=== PATIENT | female | born 1955 | race Caucasian/White ===

== ENCOUNTER 2016-06-24 09:59 | Emergency (ER) | payer OTHER ==
[2016-06-24] MEDS ORDERED: KETOROLAC TROMETHAMINE 30 MG/ML VIAL IM ONE (10:13)
[2016-06-24] MEDS ORDERED: KETOROLAC TROMETHAMINE 30 MG/ML VIAL ONE (10:18)
--- NOTE | 2016-06-24 10:20 | ERNOTE ---
Upper Extremity HPI - Narrative Date of Service: 06/24/16 - General Extremities Pain Location: wrist: left, hand: left Time Seen by Provider: 06/24/16 10:09 Source: patient, RN notes reviewed Exam Limitations: clinical condition - Immun/Allergies/Home Medications Immunizations: IMMUNIZATION HX Immunizations Up to Date Yes History of Influenza Vaccine Yes Hx Pneumococcal Vaccination No Allergies/Adverse Reactions: Allergies Allergy/AdvReac Type Severity Reaction Status Date / Time No Known Allergies Allergy Verified 06/24/16 10:09 Home Medications: HOME MEDICATIONS Acetaminophen with Codeine [Tylenol with Codeine #3 Tablet] 1 each PO Q6H PRN # 24 tab 06/24/16 [Last Taken Unknown] - Pain Score Pain Score #1 Pain Score: 3 - left wrist - History of Present Illness Narrative: 60 year old female who presents to er with c/o left wrist pain. tripped on [employer] last night, fell and landed on left wrist. no numbness / tingling left hand. has not taken anything for pain since fall. Occurred: yesterday Location of Incident: home Severity: moderate Method of Injury: Reports: fell Reason for Fall: Reports: slipped, tripped Loss of Consciousness: Reports: no loss of consciousness Modifying Factors - (Improves): Reports: immobilization Modifying Factors - (Worsens): Reports: movement Associated Symptoms: Denies: tingling Other Injuries: Reports: none Review of Systems - Review of Systems Constitutional: Present: no symptoms reported EYE: Present: no symptoms reported ENT: Present: no symptoms reported Respiratory: Present: no symptoms reported Cardiology: Present: no symptoms reported Gastrointestinal/Abdominal: Present: no symptoms reported Genitourinary: Present: no symptoms reported Musculoskeletal: Present: joint pain, joint swelling Skin: Present: no symptoms reported Neurological: Present: no symptoms reported Endocrine: Present: no symptoms reported Hematologic/Lymphatic: Present: no symptoms reported Psych: Present: no symptoms reported All Other Systems: All systems neg except as marked - Patient's Past Medical History Patient History - Medical: No pertinent hx Patient History - Cardiac/Respiratory: No pertinent hx Patient History - Cancer: No Hx of Cancer Patient History - Surgical Procedures: Tubal Ligation Patient History - Other: None LMP (females 10-50): Menopausal - Social History Living Situations: home Psych History: No pertinent hx Smoking Status: Current every day smoker Have you smoked in the past 12 months: Yes - Immunizations Immunizations Up to Date: Yes Hx Pneumococcal Vaccination: No History of Influenza Vaccine: Yes Physical Exam - Physical Exam General Appearance: Present: wd/wn, alert, no apparent distress Eye Exam: Normal inspection: bilateral Ears, Nose, Throat: Present: hearing grossly normal Neck: Present: normal inspection, nontender, supple, full range of motion Respiratory: Present: no respiratory distress, normal breath sounds, no accessory muscle use, chest nontender, lungs clear Cardiovascular/Chest: Present: regular rate, rhythm, no murmur, normal peripheral pulses Gastrointestinal/Abdominal: Present: nontender, nondistended, soft Rectal Exam: Present: deferred Back Exam: Present: normal inspection, no CVA tenderness, no vertebral tenderness Extremity Exam: Present: joint swelling - left wrist extending into left hand, other - left radius extending into left wrist tender to palpation. Neurological Exam: Present: alert, oriented, normal mood/affect, no motor/ sensory deficits Skin Exam: Present: normal color, warm/dry ED Progress - Vital Signs Vital Signs: Vital Signs 06/24/16 10:02 Pulse Rate 122 H Respiratory 14 Rate Blood Pressure 146/76 O2 Sat by Pulse 91 Oximetry - X-Ray X-Ray #1 X-Ray: wrist Interpretation: Reviewed by me X-ray Comments: Exam Date: 06/24/2016 10:26 Ordering Physician: Jeffrey Anderson Indication: Fall at home yesterday. Left wrist pain. Technique: 4 standard views of the left wrist. Findings: There is an acute transverse fracture through the distal radius. No significant angulation or displacement. No other fractures identified. Degenerative change of the radiocarpal joint, scaphoid trapezium joint and the first carpometacarpal joint. Mostly involving the first carpometacarpal joint. There is extensive soft tissue swelling of the entire left wrist secondary to the fracture. IMPRESSION: ACUTE NONDISPLACED FRACTURE THROUGH THE DISTAL RADIUS. Electronically signed by Elijah Martinez D.O.. X-Ray #2 X-Ray: hand Interpretation: Reviewed by me X-ray Comments: Exam Date: 06/24/2016 10:26 Ordering Physician: Jeffrey Anderson Indication: Fall at home yesterday. Left wrist pain. Technique: Three views of the left hand. Findings: There is an acute transverse fracture through the distal radius. No significant angulation or displacement. No other fractures identified. Degenerative change of the radiocarpal joint, scaphoid trapezium joint and the first carpometacarpal joint. Mostly involving the first carpometacarpal joint. There is extensive soft tissue swelling of the entire left wrist secondary to the fracture. IMPRESSION: ACUTE NONDISPLACED FRACTURE THROUGH THE DISTAL RADIUS. Electronically signed by Elijah Martinez D.O.. - Progress/Reassessment Chief Complaint: Wrist Injury/Pain Departure Clinical Impression: Radial fracture Qualifiers: Encounter type: initial encounter Radius location: distal Fracture alignment: nondisplaced Laterality: left Qualified Code(s): S52.502A - Unspecified fracture of the lower end of left radius, initial encounter for closed fracture - Departure Disposition: Home self-care Condition: Good Instructions: Radial Fracture Additional Instructions: Please call orthopaedics on sunday at [phone] and inform them that you were seen in the ER on sunday and have been diagnosed with a radial fracture and need an appointment for follow up. Keep splint on at all times until seen by ortho. May shower with splint but will need to cover splint with 2 trash bags and tape ends to skin. Keep splint clean and dry at all times. May wear sling for comfort. Use ibuprofen for pain and swelling. Referrals: Ishmael Cunningham MD [Staff Physician] - Prescriptions: Acetaminophen with Codeine [Tylenol with Codeine #3 Tablet] 1 each PO Q6H PRN # 24 tab PRN Reason: Severe Pain
[2016-06-24 13:10] VITALS: BP 149/85
== END 2016-06-24 11:43 | disposition home or self-care (01) ==
LOC: ER 09:59
PROC: 2W3DX1Z Immobilization of Left Lower Arm using Splint (ICD-10-PCS; principal; 2016-06-24)
DX: S52.502A Unspecified fracture of the lower end of left radius, initial encounter for closed fracture (principal); F17.210 Nicotine dependence, cigarettes, uncomplicated; W01.0XXA Fall on same level from slipping, tripping and stumbling without subsequent striking against object, initial encounter; Y93.01 Activity, walking, marching and hiking; Y92.009 Unspecified place in unspecified non-institutional (private) residence as the place of occurrence of the external cause